=== PATIENT | male | born 1970 | race Caucasian/White ===

== ENCOUNTER 2017-03-07 02:54 | Emergency (ER) | payer BC ==
[~2017-03-07] VITALS: Ht 172.7 cm; Wt 96.5 kg
[~2017-03-07 02:54] MED LIST: KETO200T PO; PSYL55.43 PO
[2017-03-07 02:59] VITALS: Ht 172.7 cm; Wt 96.5 kg
[2017-03-07] MEDS ORDERED: PRLSR20 PO (03:12)
[2017-03-07] MEDS ORDERED: ASPI325T45 PO (03:13)
[2017-03-07] MEDS ORDERED: ALUMINUM/MAGNESIUM/SIMETH (MAALOX MAX) 30 ML UDC PO STA (03:27)
--- NOTE | 2017-03-07 03:28 | EMERGENCY ROOM VISIT NOTE ---
History Report prepared by Delmyibmarixa: Jasper Hogan Under the Supervision of: Dr. Terry Salcedo D.O. First contact with patient: 03:16 Chief Complaint: CHEST PAIN Stated Complaint: CHEST PAIN Nursing Triage Summary: Patient presents to triage, via wheelchair, states "I have an issue with chronic heartburn. I take Prilosec daily. For breakthrough symptoms, I take tums. I was awakened from sleep around 0230 with a burning pressure in the center of the left side of my chest. I chewed some tums and took two full strength aspirin. I feel like the pain gets a lot worse when I take a deep breath." History of Present Illness The patient is a 46 year old male who presents to the Emergency Room with complaints of improving chest pain that he woke up with at 0230 this morning. The pain is described as a burning sensation. The pain was initially a 5/10 but is currently rated 2/10 in severity. The pain does not radiate. 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 Prior to arrival the patient was feeling dizzy, sweaty, and nauseous. He has been experiencing similar chest pain intermittently for two weeks. The patient denies any personal cardiac history. He does have a family history of CAD as his father had stents placed in his early 50s. The patient has a history of GERD. Source of History: patient Onset: 0230 this morning Position: chest Symptom Intensity: 2/10 currently Quality: burning Timing: other (improving) Associated Symptoms: + diaphoresis, + nausea Review of Systems See HPI for pertinent positives and negatives. A total of ten systems were reviewed and were otherwise negative. Past Medical & Surgical Medical Problems: (1) Colonoscopy (2) Diverticulosis (3) Hemorrhoids (4) Spastic colon Family History FHx: heart disease Social History Smoking Status: Never Smoker Alcohol Use: none Marital Status: Housing Status: lives with family Occupation Status: employed Current/Historical Medications Scheduled Aspirin (Aspirin), 650 MG PO PRN Omeprazole (Prilosec), 20 MG PO DAILY Allergies Coded Allergies: No Known Allergies (Unverified , 03/07/17) Physical Exam Vital Signs Date Time Temp Pulse Resp B/P Pulse Ox O2 Delivery O2 Flow Rate FiO2 03/07/17 05:44 66 18 112/69 96 Room Air 03/07/17 04:33 60 19 120/74 94 Room Air 03/07/17 03:42 71 15 130/80 95 Room Air 03/07/17 03:29 95 Room Air 03/07/17 03:16 70 03/07/17 03:01 98 Room Air 03/07/17 02:59 72 18 161/93 98 Room Air Physical Exam GENERAL: Awake, alert, well-appearing, in no distress HENT: Normocephalic, atraumatic. Oropharynx unremarkable. EYES: Normal conjunctiva. Sclera non-icteric. NECK: Supple. No nuchal rigidity. FROM. No JVD. RESPIRATORY: Clear to auscultation. CARDIAC: Regular rate, normal rhythm. Extremities warm and well perfused. Pulses equal. ABDOMEN: Soft, non-distended. No tenderness to palpation. No rebound or guarding. No masses. RECTAL: Deferred. MUSCULOSKELETAL: Chest examination reveals no tenderness. The back is symmetrical on inspection without obvious abnormality. There is no CVA tenderness to palpation. No joint edema. LOWER EXTREMITIES: Calves are equal size bilaterally and non-tender. No edema. No discoloration. NEURO: Normal sensorium. No sensory or motor deficits noted. SKIN: No rash or jaundice noted. Medical Decision & Procedures ER Provider Diagnostic Interpretation: X-ray: Per my interpretation, Chest One View Portable: No acute findings. Laboratory Results 03/07/17 03:05 Red Blood Count 4.96, Mean Corpuscular Volume 90.3, Mean Corpuscular Hemoglobin 32.1, Mean Corpuscular Hemoglobin Concent 35.5, Mean Platelet Volume 11.7, Neutrophils (%) (Auto) 53.1, Lymphocytes (%) (Auto) 36.4, Monocytes (%) (Auto) 7.0, Eosinophils (%) (Auto) 2.8, Basophils (%) (Auto) 0.3, Neutrophils # (Auto) 4.15, Lymphocytes # (Auto) 2.84, Monocytes # (Auto) 0.55, Eosinophils # (Auto) 0.22, Basophils # (Auto) 0.02 03/07/17 03:05 Test 03/07/17 03:05 03/07/17 05:18 03/07/17 05:21 White Blood Count 7.81 K/uL (4.8-10.8) Red Blood Count 4.96 M/uL (4.7-6.1) Hemoglobin 15.9 g/dL (14.0-18.0) Hematocrit 44.8 % (42-52) Mean Corpuscular Volume 90.3 fL (80-100) Mean Corpuscular Hemoglobin 32.1 pg (25-34) Mean Corpuscular Hemoglobin Concent 35.5 g/dl (32-36) Platelet Count 190 K/uL (130-400) Mean Platelet Volume 11.7 fL (7.4-10.4) Neutrophils (%) (Auto) 53.1 % Lymphocytes (%) (Auto) 36.4 % Monocytes (%) (Auto) 7.0 % Eosinophils (%) (Auto) 2.8 % Basophils (%) (Auto) 0.3 % Neutrophils # (Auto) 4.15 K/uL (1.4-6.5) Lymphocytes # (Auto) 2.84 K/uL (1.2-3.4) Monocytes # (Auto) 0.55 K/uL (0.11-0.59) Eosinophils # (Auto) 0.22 K/uL (0-0.5) Basophils # (Auto) 0.02 K/uL (0-0.2) RDW Standard Deviation 40.9 fL (36.4-46.3) RDW Coefficient of Variation 12.5 % (11.5-14.5) Immature Granulocyte % (Auto) 0.4 % Immature Granulocyte # (Auto) 0.03 K/uL (0.00-0.02) Nucleated RBC Absolute Count (auto) 0.07 K/uL (0-0) Nucleated Red Blood Cells % 0.8 % Est Creatinine Clear Calc Drug Dose 93.5 ml/min Estimated GFR () 92.2 Estimated GFR (Non- 79.5 BUN/Creatinine Ratio 19.4 (10-20) Calcium Level 8.7 mg/dl (8.5-10.1) Total Bilirubin 0.5 mg/dl (0.2-1) Direct Bilirubin mg/dl (0-0.2) Aspartate Amino Transf (AST/SGOT) U/L (15-37) Alanine Aminotransferase (ALT/SGPT) 50 U/L (12-78) Alkaline Phosphatase 70 U/L (45-117) Total Protein 7.0 gm/dl (6.4-8.2) Albumin 4.0 gm/dl (3.4-5.0) Bedside Troponin I 0.010 ng/ml (0-0.045) Bedside Hemoglobin 12.9 g/dl (14.0-18.0) Bedside Hematocrit 38 % (42-52) Bedside Sodium 142 mEq/L (135-144) Bedside Potassium 5.0 mEq/L (3.3-5.0) Bedside Chloride 107 mEq/L (101-112) Bedside Total CO2 26 mEq/l (24-31) Anion Gap 15.0 mmol/L (16-25) Bedside Blood Urea Nitrogen 28 mg/dl (7-18) Bedside Creatinine 0.9 mg/dl (0.6-1.3) Bedside Glucose (other) 111 mg/dl (70-99) Bedside Ionized Calcium (Tyrese) 1.20 mmol/l (1.12-1.32) Laboratory results reviewed by me Medications Administered Medications (Trade) Dose Ordered Sig/Anne Marie Route Start Time Stop Time Status Last Admin Dose Admin Al Hydrox/Mg Hydrox/Simethicone (Maalox Max Susp) 30 ml NOW STAT PO 03/07/17 03:27 03/07/17 03:29 DC 03/07/17 03:39 30 ML ECG Indication: chest pain Rate (beats per minute): 62 Rhythm: sinus rhythm Findings: no acute ischemic change, left axis deviation ED Course 0320: The patient was evaluated in room A12b. A complete history and physical exam was performed. 0327: Maalox 30 ml PO. 0550: Reassessed the patient. He is resting in no distress, smiling, no current complaints. He will be discharged. Medical Decision Differential diagnosis includes angina, unstable angina, ACS, acute MD, GERD, gastritis, reflux, anxiety. Patient has a very low heart score. I doubt acute coronary syndrome. Patient has 2 negative troponins. Patient on reexamination at 5:50 AM is resting in no distress with no current pain. I've advised the patient patient's that he needs follow-up for continued care in the possibility of a outpatient stress test. Patient was given signs and symptoms to return. Impression Primary Impression: Non-cardiac chest pain Scribe Attestation The scribe's documentation has been prepared under my direction and personally reviewed by me in its entirety. I confirm that the note above accurately reflects all work, treatment, procedures, and medical decision making performed by me. Departure Information Dispostion Home / Self-Care Referrals Vonda Cancino (PCP) Forms HOME CARE DOCUMENTATION FORM, IMPORTANT VISIT INFORMATION Patient Instructions ED Chest Pain Atypical Unkn Cause, My [facility]
[2017-03-07 03:29] VITALS: O2SAT 95
[2017-03-07 03:31] LABS: BASO % 0.3 %; BASO ABS # 0.02 K/uL (0-0.2); COMPLETE YES; EOS % 2.8 %; HEMATOCRIT 44.8 % (42-52); IG% 0.4 %; LYMPH % 36.4 %; LYMPH ABS # 2.84 K/uL (1.2-3.4); MEAN CELL VOLUME 90.3 fL (80-100); MEAN CORPUSCULAR HEMOGLOBIN 32.1 pg (25-34); MEAN CORPUSCULAR HGB CONC 35.5 g/dl (32-36); MEAN PLATELET VOLUME 11.7 fL (7.4-10.4); NEUT % 53.1 %; PLATELET COUNT 190 K/uL (130-400); RED BLOOD COUNT 4.96 M/uL (4.7-6.1); WHITE BLOOD COUNT 7.81 K/uL (4.8-10.8)
[2017-03-07 04:09] LABS: ALKALINE PHOSPHATASE 70 U/L (45-117); ALT/SGPT 50 U/L (12-78); BLOOD UREA NITROGEN 21 mg/dl (7-18); BUN/CREATININE RATIO 19.4 (10-20); CALCIUM 8.7 mg/dl (8.5-10.1); CARBON DIOXIDE 26 mmol/L (21-32); CHLORIDE 109 mmol/L (98-107); GLUCOSE 103 mg/dl (70-99); SODIUM 147 mmol/L (136-145)
[2017-03-07 05:35] LABS: ISTAT CREATININE 0.9 mg/dl (0.6-1.3); ISTAT HEMOGLOBIN 12.9 g/dl (14.0-18.0); ISTAT IONIZED CALCIUM 1.2 mmol/l (1.12-1.32)
[2017-03-07 06:06] VITALS: BP 126/83; PULSE 59; O2SAT 96
--- NOTE | 2017-03-07 08:35 | DIAGNOSTIC IMAGING REPORT ---
CHEST ONE VIEW PORTABLE CLINICAL HISTORY: Chest pain. COMPARISON STUDY: Chest radiograph October 25, 2015. FINDINGS: Lung volumes are at the lower limits of normal. There is no consolidation to suggest pneumonia. There is no pneumothorax or pleural effusion. Left hilar prominence is unchanged and likely due to normal structures. IMPRESSION: No acute cardiopulmonary findings. Electronically signed by: Rajat Henderson M.D. 03/07/2017 8:34 AM Dictated Date/Time: 03/07/2017 8:33 AM
== END 2017-03-07 06:08 | disposition home or self-care (01) ==
LOC: C.EDB 02:55 → C.EDA 06:08
DX: R07.89 Other chest pain (principal); K21.9 Gastro-esophageal reflux disease without esophagitis; K57.90 Diverticulosis of intestine, part unspecified, without perforation or abscess without bleeding; K64.9 Unspecified hemorrhoids; K58.9 Irritable bowel syndrome, unspecified; Z79.82 Long term (current) use of aspirin